=== PATIENT | male | born 1980 | race African-American/Black ===

== ENCOUNTER 2019-11-14 12:36 | Emergency (ER) | payer MEDICAID ==
[~2019-11-14] VITALS: Ht 175.3 cm; Wt 107.0 kg
[2019-11-14] MEDS ORDERED: IBUPROFEN 800MG TABLET PO ONE (13:00)
[2019-11-14] MEDS ORDERED: ACETAMINOPHEN 500MG TABLET PO ONE (13:00)
[2019-11-14 14:08] VITALS: BP 141/79
== END 2019-11-14 14:09 | disposition home or self-care (01) ==
LOC: ER 12:36
DX: S46.811A Strain of other muscles, fascia and tendons at shoulder and upper arm level, right arm, initial encounter (principal); X58.XXXA Exposure to other specified factors, initial encounter; Y93.89 Activity, other specified; Y92.89 Other specified places as the place of occurrence of the external cause; Y99.8 Other external cause status
CPT/HCPCS: 72040; 99283

== ENCOUNTER 2020-01-02 12:52 | Emergency (ER) | payer MEDICAID ==
[~2020-01-02] VITALS: Ht 175.3 cm; Wt 107.0 kg
[2020-01-02 15:15] VITALS: BP 138/80
[2020-01-02] MEDS ORDERED: CLINDAMYCIN HCL 150MG CAPSULE PO SCH (18:00)
== END 2020-01-02 15:27 | disposition home or self-care (01) ==
LOC: ER 12:52
DX: L03.113 Cellulitis of right upper limb (principal); Z90.49 Acquired absence of other specified parts of digestive tract
CPT/HCPCS: 73080; 99283